=== PATIENT | female | born 1975 | race Caucasian/White ===

== ENCOUNTER 2023-06-02 19:11 | Emergency (ER) | payer OTHER ==
[~2023-06-02] VITALS: Ht 165.1 cm; Wt 75.0 kg
[2023-06-02 19:20] VITALS: O2SAT 99
[2023-06-02] MEDS ORDERED: KETOROLAC 60MG/2ML VIAL IM ONE (21:45)
[2023-06-02] MEDS ORDERED: CYCLOBENZAPRINE 10MG TABLET PO ONE (21:45)
[2023-06-02] MEDS ORDERED: ACETAMINOPHEN 325MG TABLET PO ONE (21:45)
[2023-06-02] MEDS ORDERED: NAPR-681 MT (22:24)
[2023-06-02] MEDS ORDERED: CYCL5TAB MT (22:24)
[2023-06-02] MEDS ORDERED: LIDO700A15 TP (22:24)
[2023-06-02] MEDS ORDERED: TOPUD MT (22:24)
[2023-06-02 22:42] VITALS: BP 137/79; PULSE 79; RESP 18; TEMP 98.6
== END 2023-06-02 22:46 | disposition home or self-care (01) ==
LOC: ER 19:11
DX: S16.1XXA Strain of muscle, fascia and tendon at neck level, initial encounter (principal); S43.422A Sprain of left rotator cuff capsule, initial encounter; V49.9XXA Car occupant (driver) (passenger) injured in unspecified traffic accident, initial encounter; Y93.89 Activity, other specified; Y92.89 Other specified places as the place of occurrence of the external cause; Y99.8 Other external cause status
CPT/HCPCS: 81025; 71045; 73030; 96372; 99284; J1885; Z7610